=== PATIENT | male | born 1965 | race Caucasian/White ===

== ENCOUNTER 2017-09-14 11:54 | Emergency (ER) | payer SELFPAY ==
--- NOTE | 2017-09-14 13:18 | RAD REPORT ---
EXAM DESCRIPTION: RAD - Knee Left 3 View - 09/14/2017 1:00 pm CLINICAL HISTORY: Left knee pain FINDINGS: No fracture or dislocation is seen. A small joint effusion may be present Mild narrowing involves the medial compartment
--- NOTE | 2017-09-14 13:38 | ER ---
Nurse's Notes [facility] Name: Michael Loya Age: 52 yrs Sex: Male : 1965 Arrival Date: 09/14/2017 Time: 11:57 Bed 10 Private MD: None, None Diagnosis: Left Knee pain;Left Knee pain;Left knee swelling;left knee effuion Presentation: 09/14 12:15 Presenting complaint: Patient states: Left knee pain since Tuesday. Denies OTC medications. Transition of care: patient was not received from another setting of care. Onset of symptoms was September 09, 2017. Initial Sepsis Screen: Does the patient meet any 2 criteria? No. Patient's initial sepsis screen is negative. Does the patient have a suspected source of infection? No. Patient's initial sepsis screen is negative. Care prior to arrival: None. 12:15 Method Of Arrival: Wheelchair aj 12:15 Acuity: LUISA 4 aj Triage Assessment: 12:16 General: Appears in no apparent distress. comfortable, Behavior is calm, cooperative, aj appropriate for age. Pain: Complains of pain in left knee. Neuro: Level of Consciousness is awake, alert, obeys commands, Oriented to person, place, time, situation, Appropriate for age. Respiratory: Airway is patent Respiratory effort is even, unlabored, Respiratory pattern is regular, symmetrical. Derm: Skin is intact, is healthy with good turgor, Skin is pink, warm \T\ dry. normal. Musculoskeletal: Circulation, motion, and sensation intact. Range of motion: intact in all extremities, Swelling absent. Historical: - Allergies: 12:16 No Known Allergies; aj - Home Meds: 12:16 None [Active]; aj - PMHx: 12:16 Hepatitis; - PSHx: 12:16 Cholecystectomy; FOOT SURGERY; aj - Immunization history:: Adult Immunizations up to date. - Social history:: Smoking status: Patient uses tobacco products, smokes one pack cigarettes per day. - Family history:: not pertinent. - Hospitalizations: : No recent hospitalization is reported. Screenin:15 Abuse screen: Denies threats or abuse. Denies injuries from another. Nutritional iw screening: No deficits noted. Tuberculosis screening: No symptoms or risk factors identified. Fall Risk None identified. Assessment: 13:15 General: Appears in no apparent distress. comfortable, Behavior is calm, cooperative. iw Pain: Complains of pain in left knee. Neuro: Level of Consciousness is awake, alert, obeys commands, Oriented to person, place, time, Moves all extremities. Cardiovascular: Patient's skin is warm and dry. Respiratory: Airway is patent. GI: No signs and/or symptoms were reported involving the gastrointestinal system. Derm: Skin is pink, warm \T\ dry. normal. Musculoskeletal: Range of motion: limited in left knee. Vital Signs: 12:16 BP 130 / 86; Pulse 88; Resp 18; Temp 99.2; Pulse Ox 99% on R/A; Weight 79.38 kg; Height aj 5 ft. 8 in. (172.72 cm); Pain 7/10; 12:16 Body Mass Index 26.61 (79.38 kg, 172.72 cm) aj ED Course: 11:57 Patient arrived in ED. mr 11:57 None, None is Private Physician. mr 12:16 Triage completed. aj 12:16 Arm band placed on right wrist. Patient placed in waiting room, Patient notified of wait time. X-ray ordered. 12:56 Jackie Vaz, DIANA is Primary Nurse. iw 12:58 X-ray completed. Patient tolerated procedure well. Patient moved to radiology via jb2 wheelchair. Patient moved back from radiology. 13:00 XRAY Knee LEFT 3 view In Process Unspecified. EDMS 13:01 Joel Gutierrez MD is Attending Physician. wa 13:30 Patient has correct armband on for positive identification. iw 13:36 Nithin Long MD is Referral Physician. wa 14:15 No provider procedures requiring assistance completed. Patient did not have IV access iw during this emergency room visit. Administered Medications: 14:11 Drug: Motrin 600 mg Route: PO; iw 14:11 Drug: predniSONE 60 mg Route: PO; iw Outcome: 13:37 Discharge ordered by . wa 14:16 Discharged to home via wheelchair, with family. iw 14:16 Condition: good 14:16 Discharge instructions given to patient, family, Instructed on discharge instructions, follow up and referral plans. medication usage, Demonstrated understanding of instructions, follow-up care, medications, Prescriptions given X 2. 14:16 Patient left the ED. iw Signatures: Dispatcher [employer] EDCarol Ann Boogie RN RN aj Rivera, Maria mr Buechter, Jesse jb2 Jackie Vaz, DIANA RN Joel Ybarra MD MD wa
--- NOTE | 2017-09-14 13:38 | EDPHYS ---
Physician Documentation [facility] Name: Michael Loya Age: 52 yrs Sex: Male : 1965 Arrival Date: 09/14/2017 Time: 11:57 Bed 10 Private MD: None, None ED Physician Joel Gutierrez HPI: 09/14 13:29 This 52 yrs old Male presents to ER via Wheelchair with complaints of Knee wa Pain. 13:29 The patient presents with pain, that is acute, tenderness. The complaints affect the wa left knee. Context: denies known injury. c/o pain with ambulation and touch x 5 days. Onset: The symptoms/episode began/occurred 5 day(s) ago. Modifying factors: The symptoms are alleviated by nothing. the symptoms are aggravated by nothing. Associated signs and symptoms: Pertinent positives: swelling, warmth, Pertinent negatives calf tenderness, fever, nausea, numbness, rash, tingling, vomiting. Treatment prior to arrival includes: no previous treatment. Severity of symptoms: At their worst the symptoms were moderate, in the emergency department the symptoms are unchanged. The patient has not experienced similar symptoms in the past. The patient has not recently seen a physician. Historical: - Allergies: 12:16 No Known Allergies; aj - Home Meds: 12:16 None [Active]; aj - PMHx: 12:16 Hepatitis; aj - PSHx: 12:16 Cholecystectomy; FOOT SURGERY; aj - Immunization history:: Adult Immunizations up to date. - Social history:: Smoking status: Patient uses tobacco products, smokes one pack cigarettes per day. - Family history:: not pertinent. - Hospitalizations: : No recent hospitalization is reported. ROS: 13:31 Constitutional: Negative for fever, chills, and weight loss, Eyes: Negative for injury, wa pain, redness, and discharge, ENT: Negative for injury, pain, and discharge, Neck: Negative for injury, pain, and swelling, Cardiovascular: Negative for chest pain, palpitations, and edema, Respiratory: Negative for shortness of breath, cough, wheezing, and pleuritic chest pain, Abdomen/GI: Negative for abdominal pain, nausea, vomiting, diarrhea, and constipation, Back: Negative for injury and pain, : Negative for injury, bleeding, discharge, and swelling, Skin: Negative for injury, rash, and discoloration, Neuro: Negative for headache, weakness, numbness, tingling, and seizure. 13:31 MS/extremity: Positive for pain, swelling, tenderness, no deformity of L knee. mild diffuse swelling with tenderness. normothermic to palpation. 13:31 All other systems are negative. Vital Signs: 12:16 BP 130 / 86; Pulse 88; Resp 18; Temp 99.2; Pulse Ox 99% on R/A; Weight 79.38 kg; Height aj 5 ft. 8 in. (172.72 cm); Pain 7/10; 12:16 Body Mass Index 26.61 (79.38 kg, 172.72 cm) MDM: 13:01 Patient medically screened. ok 13:32 Differential diagnosis: arthritis? effusion? pain control. check xrays. ok 13:34 Data reviewed: vital signs, nurses notes, radiologic studies. Test interpretation: by ok ED physician or midlevel provider: L knee xray: mild narrowing to medial compartment. small joint effusion. Response to treatment: the patient's symptoms have mildly improved after treatment. 13:35 Special discussion: pain meds given. will d/c with ortho f/u. ok 09/14 12:18 Order name: XRAY Knee LEFT 3 view; Complete Time: 13:21 09/14 13:25 Order name: Charlie Wrap: L knee; Complete Time: 14:13 ok Administered Medications: 14:11 Drug: Motrin 600 mg Route: PO; 14:11 Drug: predniSONE 60 mg Route: PO; Disposition: 09/14/17 13:37 Discharged to Home. Impression: Left Knee pain, Left Knee pain, Left knee swelling, left knee effuion. - Condition is Stable. - Discharge Instructions: Knee Effusion, Knee Pain. - Prescriptions for Ibuprofen 600 mg Oral Tablet - take 1 tablet by ORAL route every 6 hours As needed take with food; 30 tablet. Prednisone 20 mg Oral Tablet - take 2 tablet by ORAL route once daily for 5 days; 10 tablet. - Medication Reconciliation Form, Thank You Letter, Antibiotic Education, Prescription Opioid Use form. - Follow up: Nithin Long MD; When: 2 - 3 days; Reason: Further diagnostic work-up. - Problem is new. - Symptoms have improved. - Notes: take medicine as prescribed as discussed. follow up with the orthopedist for further evaluation Signatures: Dispatcher [employer] Carol Ann Metzger, RN Jackie Jacques RN RN iw Appiah, William, MD MD wa Corrections: (The following items were deleted from the chart) 14:16 13:37 09/14/2017 13:37 Discharged to Home. Impression: Left Knee pain; Left Knee pain; iw Left knee swelling; left knee effuion. Condition is Stable. Forms are Medication Reconciliation Form, Thank You Letter, Antibiotic Education, Prescription Opioid Use. Follow up: Nithin Long; When: 2 - 3 days; Reason: Further diagnostic work-up. Problem is new. Symptoms have improved. wa
[2017-09-14] MEDS ORDERED: predniSONE 20 MG TAB ONE (14:07)
[2017-09-14] MEDS ORDERED: IBUPROFEN 200 MG TAB PO ONE (14:07)
== END 2017-09-14 14:16 | disposition home or self-care (01) ==
LOC: ER 11:54
DX: M25.562 Pain in left knee (principal); M25.462 Effusion, left knee
CPT/HCPCS: 99283; J7512

== ENCOUNTER 2018-04-11 01:22 | Emergency (ER) | payer SELFPAY ==
--- NOTE | 2018-04-11 02:17 | ER ---
Nurse's Notes [facility] Name: Michael Loya Age: 52 yrs Sex: Male : 1965 Arrival Date: 04/11/2018 Time: :27 Bed Waiting Private MD: Diagnosis: Presentation: 04/11 01:41 Note pt called from lob but was not available registration states pt went out to make bb a phone call. 02:15 Note pt called from lob no answer. bb ED Course: 01:27 Patient arrived in ED. es 01:33 Marito Shin MD is Attending Physician. fay 01:33 Luis Eduardo De Paz RN is Primary Nurse. jmelo 01:55 Patient's name was called from ER lob. No response. aa1 Administered Medications: No medications were administered Outcome: 02:16 Patient left the ED. bb Signatures: Minna Rojas RN RN aa1 Marylin Cheng Brenda, RN RN bb Marito Shin MD MD gs Davies, Jonathon, RN RN jd3
== END 2018-04-11 02:16 | disposition left against medical advice (07) ==
LOC: ER 01:22
DX: Z53.21 Procedure and treatment not carried out due to patient leaving prior to being seen by health care provider (principal)

== ENCOUNTER 2020-07-23 03:08 | Emergency (ER) | payer SELFPAY ==
--- OUTSIDE RECORDS SUMMARY | 2020-07-23 03:11 | XMS REPORT | Continuity of Care Document ---
:1965 Author Organization [facility] t Address [address] [place] [id number] Care Team Providers Name Role Phone Unavailable Unavailable Unavailable Problems This patient has no known problems. Allergies, Adverse Reactions, Alerts This patient has no known allergies or adverse reactions. Medications This patient has no known medications. Procedures This patient has no known procedures. Results This patient has no known results.
[2020-07-23 05:15] LABS: Barbiturates NEGATIVE (NEGATIVE); Benzodiazepines NEGATIVE (NEGATIVE); Cocaine NEGATIVE (NEGATIVE); METHAMPHETAM POSITIVE (NEGATIVE); Methadone NEGATIVE (NEGATIVE); Opiates NEGATIVE (NEGATIVE); Phencyclidine NEGATIVE (NEGATIVE); THC Cannibis POSITIVE (NEGATIVE)
[2020-07-23 05:37] LABS: Urine Blood NEGATIVE (NEG); Urine Glucose NEGATIVE (NEG); Urine Protein NEGATIVE (NEG); Urine Specific Gravity 1.025 (1.005-1.030)
--- NOTE | 2020-07-23 05:47 | ER ---
Nurse's Notes [facility] Name: Michael Loya Age: 54 yrs Sex: Male : 1965 Arrival Date: 07/23/2020 Time: 03:12 Bed 23 Private MD: Diagnosis: Fall-Mechanical;Lower Back Contusion;Spinal stenosis, lumbar region;Methamphetamine Abuse;Cannabinoid Abuse Presentation: 07/23 03:26 Chief complaint: Patient states: he accidently fell through a house window 2 days ago bb landing on his back 2 days ago denies LOC but is c/o right buttock pain which is a constant, non-radiating throbbing pain 01/23 and now he has urinary frequency "it doesn't feel right". Coronavirus screen: At this time, the client does not indicate any symptoms associated with coronavirus-19. Ebola Screen: No symptoms or risks identified at this time. Initial Sepsis Screen: Does the patient meet any 2 criteria? No. Patient's initial sepsis screen is negative. Does the patient have a suspected source of infection? No. Patient's initial sepsis screen is negative. Risk Assessment: Do you want to hurt yourself or someone else? Patient reports no desire to harm self or others. Onset of symptoms was July 20, 2020. 03:26 Method Of Arrival: Ambulatory bb 03:26 Acuity: LUISA 3 bb Triage Assessment: :29 General: Appears in no apparent distress. uncomfortable, Behavior is calm, cooperative. bb Pain: Complains of pain in buttocks Pain currently is 9 out of 10 on a pain scale. Neuro: Level of Consciousness is awake, alert, obeys commands, Oriented to person, place, time, situation. Cardiovascular: No deficits noted. Respiratory: Respiratory effort is even, unlabored, Respiratory pattern is regular. : Reports urinary frequency. Musculoskeletal: Circulation, motion, and sensation intact. Historical: - Allergies: 03:29 No Known Allergies; bb - Home Meds: : None [Active]; bb - PMHx: 03: Hepatitis; bb - PSHx: 03:29 Cholecystectomy; toe surgery; bb - Immunization history:: Adult Immunizations up to date. - Social history:: Smoking status: Patient reports the use of cigarette tobacco products, smokes one-half pack cigarettes per day. Screenin:02 Abuse screen: Denies threats or abuse. Nutritional screening: No deficits noted. bb Tuberculosis screening: No symptoms or risk factors identified. Fall Risk Fall in past 12 months (25 points). Secondary diagnosis (15 points) impaired mobility, Ambulatory Aid- None/Bed Rest/Nurse Assist (0 pts). Gait- Normal/Bed Rest/Wheelchair (0 pts) Mental Status- Oriented to own ability (0 pts). Total Suarez Fall Scale indicates Low Risk Score (25-44 pts). Fall prevention measures have been instituted. Side Rails Up X 2 As available Patient and Family Educated on Fall Prevention Program and strategies. Assessment: 04:02 Reassessment: No changes from previously documented assessment. see triage assessment. bb 06:01 Reassessment: Patient and/or family updated on plan of care and expected duration. Pain bb level reassessed. Patient is alert, oriented x 3, equal unlabored respirations, skin warm/dry/pink. pt states pain is now 2/10. Pt verbalized understanding of and agrees to plan of care discharge instructions given pt ambulated with steady gait to exit Patient states feeling better. Vital Signs: 03:26 BP 152 / 100; Pulse 74; Resp 16 S; Temp 97.9(O); Pulse Ox 99% on R/A; Weight 72.57 kg bb (R); Height 5 ft. 7 in. (170.18 cm) (R); Pain 9/10; 04:55 BP 150 / 93; Pulse 64; Resp 16; Pulse Ox 96% on R/A; mw2 06:02 BP 150 / 90; Pulse 68; Resp 16 S; Temp 97.7(O); Pulse Ox 97% on R/A; Pain 2/10; bb 03:26 Body Mass Index 25.06 (72.57 kg, 170.18 cm) ED Course: 03:12 Patient arrived in ED. am4 03:29 Triage completed. bb 03:29 Arm band placed on Patient placed in waiting room, Patient notified of wait time. bb 03:58 Gregorio Montejo MD is Attending Physician. [facility] 04:02 Patient has correct armband on for positive identification. Call light in reach. Side bb rails up X 1. 04:58 CT Lumbar Spine Wo Con In Process Unspecified. EDMS 05:43 Vinod Cr MD is Referral Physician. [facility] 06:02 No provider procedures requiring assistance completed. Patient did not have IV access bb during this emergency room visit. Administered Medications: 05:40 Drug: TORadol 60 mg Route: IM; Site: right gluteus; bb 06:01 Follow up: Response: No adverse reaction; Pain is decreased shante Outcome: 05:46 Discharge ordered by . [facility] 06:02 Discharged to home ambulatory. shante 06:02 Condition: stable 06:02 Discharge instructions given to patient, Instructed on discharge instructions, follow up and referral plans. Demonstrated understanding of instructions, follow-up care. 06:03 Patient left the ED. bb Signatures: Dispatcher [employer] EDIrma Orozco RN RN bb Akhil Monge mw2 Gregorio Montejo MD MD [facility] Melia Quintanilla 4
--- NOTE | 2020-07-23 05:47 | EDPHYS ---
Physician Documentation [facility] Name: Michael Loya Age: 54 yrs Sex: Male : 1965 Arrival Date: 07/23/2020 Time: 03:12 Bed 23 Private MD: ED Physician Gregorio Montejo HPI: 07/23 05:06 This 54 yrs old Male presents to ER via Ambulatory with complaints of Fall mh7 Injury. 05:07 Details of fall: The patient fell from a height, from a ladder, approximately 2 feet, mh7 and struck a glass surface. Onset: The symptoms/episode began/occurred 3 day(s) ago. Associated injuries: The patient sustained injury to the low back, pain, pain with movement, tenderness. Severity of symptoms: At their worst the symptoms were moderate, 2 day(s) ago, in the emergency department the symptoms are unchanged. States that as he was coming down from a ladder when was approximately 2 feet high he fell into a 1 st floor window injuring his lower back. He denies any LOC or other injuries.. Historical: - Allergies: 03:29 No Known Allergies; bb - Home Meds: 03:29 None [Active]; bb - PMHx: 03:29 Hepatitis; bb - PSHx: 03:29 Cholecystectomy; toe surgery; bb - Immunization history:: Adult Immunizations up to date. - Social history:: Smoking status: Patient reports the use of cigarette tobacco products, smokes one-half pack cigarettes per day. ROS: 05:07 Constitutional: Negative for fever, chills, and weight loss, Eyes: Negative for injury, mh7 pain, redness, and discharge, ENT: Negative for injury, pain, and discharge, Neck: Negative for injury, pain, and swelling, Cardiovascular: Negative for chest pain, palpitations, and edema, Respiratory: Negative for shortness of breath, cough, wheezing, and pleuritic chest pain, Abdomen/GI: Negative for abdominal pain, nausea, vomiting, diarrhea, and constipation. 05:07 MS/Extremity: Negative for injury and deformity, Skin: Negative for injury, rash, and discoloration, Neuro: Negative for headache, weakness, numbness, tingling, and seizure, Psych: Negative for depression, anxiety, suicide ideation, homicidal ideation, and hallucinations, Allergy/Immunology: Negative for hives, rash, and allergies, Endocrine: Negative for neck swelling, polydipsia, polyuria, polyphagia, and marked weight changes, Hematologic/Lymphatic: Negative for swollen nodes, abnormal bleeding, and unusual bruising. 05:07 Back: Negative for 05:07 : Positive for urinary frequency, for 2-3 weeks. Exam: 05:07 Constitutional: This is a well developed, well nourished patient who is awake, alert, mh7 and in no acute distress. Head/Face: Normocephalic, atraumatic. Eyes: Pupils equal round and reactive to light, extra-ocular motions intact. Lids and lashes normal. Conjunctiva and sclera are non-icteric and not injected. Cornea within normal limits. Periorbital areas with no swelling, redness, or edema. Neck: Trachea midline, no thyromegaly or masses palpated, and no cervical lymphadenopathy. Supple, full range of motion without nuchal rigidity, or vertebral point tenderness. No Meningismus. Chest/axilla: Normal chest wall appearance and motion. Nontender with no deformity. No lesions are appreciated. Cardiovascular: Regular rate and rhythm with a normal S1 and S2. No gallops, murmurs, or rubs. Normal PMI, no JVD. No pulse deficits. Respiratory: Lungs have equal breath sounds bilaterally, clear to auscultation and percussion. No rales, rhonchi or wheezes noted. No increased work of breathing, no retractions or nasal flaring. Abdomen/GI: Soft, non-tender, with normal bowel sounds. No distension or tympany. No guarding or rebound. No evidence of tenderness throughout. Skin: Warm, dry with normal turgor. Normal color with no rashes, no lesions, and no evidence of cellulitis. MS/ Extremity: Pulses equal, no cyanosis. Neurovascular intact. Full, normal range of motion. Neuro: Awake and alert, GCS 15, oriented to person, place, time, and situation. Cranial nerves II-XII grossly intact. Motor strength 5/5 in all extremities. Sensory grossly intact. Cerebellar exam normal. Normal gait. Psych: Awake, alert, with orientation to person, place and time. Behavior, mood, and affect are within normal limits. Vital Signs: 03:26 BP 152 / 100; Pulse 74; Resp 16 S; Temp 97.9(O); Pulse Ox 99% on R/A; Weight 72.57 kg bb (R); Height 5 ft. 7 in. (170.18 cm) (R); Pain 9/10; 04:55 BP 150 / 93; Pulse 64; Resp 16; Pulse Ox 96% on R/A; mw2 06:02 BP 150 / 90; Pulse 68; Resp 16 S; Temp 97.7(O); Pulse Ox 97% on R/A; Pain 2/10; bb 03:26 Body Mass Index 25.06 (72.57 kg, 170.18 cm) bb MDM: 05:42 Differential diagnosis: abrasion, contusion, fracture. Data reviewed: vital signs, [facility] nurses notes, lab test result(s), urinalysis, urine drug screen, radiologic studies, CT scan. Data interpreted: Pulse oximetry: on room air is 96 %. Interpretation: normal. Counseling: I had a detailed discussion with the patient and/or guardian regarding: the historical points, exam findings, and any diagnostic results supporting the discharge/admit diagnosis, the presence of at least one elevated blood pressure reading (>120/80) during this emergency department visit, lab results, radiology results, the need for outpatient follow up, to return to the emergency department if symptoms worsen or persist or if there are any questions or concerns that arise at home. 05:46 Patient medically screened. [facility] 07/23 04:23 Order name: UDS; Complete Time: 05:17 [facility] 07/23 04:42 Order name: Urine Dipstick--Ancillary (enter results) [facility] 07/23 04:23 Order name: CT Lumbar Spine Wo Con [facility] 07/23 04:23 Order name: Urine Dipstick-Ancillary (obtain specimen); Complete Time: 04:41 [facility] 07/23 04:43 Order name: Urine Dipstick-Ancillary; Complete Time: 05:39 EDMS Administered Medications: 05:40 Drug: TORadol 60 mg Route: IM; Site: right gluteus; bb 06:01 Follow up: Response: No adverse reaction; Pain is decreased bb Disposition: 07/23/20 05:46 Discharged to Home. Impression: Fall-Mechanical, Lower Back Contusion, Spinal stenosis, lumbar region, Methamphetamine Abuse, Cannabinoid Abuse. - Condition is Stable. - Discharge Instructions: Cannabis Use Disorder, Back Injury Prevention, Uxoq-[id number]-Clev, Contusion, Kbpy-xh-[id number], Back Pain, Adult, Sxfe-jy-[id number], Stimulant Use Disorder-Methamphetamines. - Medication Reconciliation Form, Thank You Letter, Antibiotic Education, Prescription Opioid Use form. - Follow up: Private Physician; When: 1 - 2 days; Reason: Worsening of condition, Recheck today's complaints, Continuance of care, Re-evaluation by your physician. Follow up: Vinod Cr MD; When: 1 - 2 days; Reason: Worsening of condition, Recheck today's complaints. - Problem is new. - Symptoms have improved. Signatures: Dispatcher [employer] EDMS Irma Espinoza RN RN Gregorio Hatfield MD MD mh7 Corrections: (The following items were deleted from the chart) 05:50 05:46 07/23/2020 05:46 Discharged to Home. Impression: Fall-Mechanical; Lower Back mh7 Contusion; Spinal stenosis, lumbar region. Condition is Stable. Forms are Medication Reconciliation Form, Thank You Letter, Antibiotic Education, Prescription Opioid Use. Follow up: Private Physician; When: 1 - 2 days; Reason: Worsening of condition, Recheck today's complaints, Continuance of care, Re-evaluation by your physician. Follow up: Vinod Cr; When: 1 - 2 days; Reason: Worsening of condition, Recheck today's complaints. Problem is new. Symptoms have improved. mh7 06:03 05:50 07/23/2020 05:46 Discharged to Home. Impression: Fall-Mechanical; Lower Back bb Contusion; Spinal stenosis, lumbar region; Methamphetamine Abuse; Cannabinoid Abuse. Condition is Stable. Discharge Instructions: Back Injury Prevention, Yodz-fp-[id number], Contusion, Hkte-lm-Movd, Back Pain, Adult, Lofc-vm-Wiii, Cannabis Use Disorder, Stimulant Use Disorder-Methamphetamines. Forms are Medication Reconciliation Form, Thank You Letter, Antibiotic Education, Prescription Opioid Use. Follow up: Private Physician; When: 1 - 2 days; Reason: Worsening of condition, Recheck today's complaints, Continuance of care, Re-evaluation by your physician. Follow up: Vinod Cr; When: 1 - 2 days; Reason: Worsening of condition, Recheck today's complaints. Problem is new. Symptoms have improved. 7
[2020-07-23] MEDS ORDERED: KETOROLAC 30 MG/ML INJ ONE (05:55)
--- NOTE | 2020-07-23 10:23 | RAD REPORT ---
EXAM DESCRIPTION: CT Lumbar Spine COMPARISON: None. CLINICAL HISTORY: [facility] MAIN trauma TECHNIQUE: Axial CT images were obtained through the entire lumbar spine without contrast. Sagitta l and coronal reconstructions are provided. Automated exposure control was utilized on this examinati on as a dose lowering technique. FINDINGS: Vertebrae: Vertebral statures and alignment are normal. No acute vertebral fracture, dis location or destructive osseous process is present. Spinal canal, foramina, and facet joints: Greatest spinal canal stenosis is moderate at L5-S1 due to disc bulge and facet hypertrophy. Greatest neural foraminal stenosis is moderate to severe at right L5 due to facet hypertrophy with fragmented osteophyte. Paraspinous soft-tissues: Normal. Other Findings: Moderate calcified atherosclerosis. IMPRESSION: 1. No acute vertebral fracture or subluxation. 2. Moderate spinal canal stenosis at L5-S1. 3. Moderate to severe right L5 neural foraminal stenosis due to facet hypertrophy with fragmented ost eophyte. 4. Moderate atherosclerosis. Electronically signed by: Nhan Boone MD 07/23/2020 5:09 AM [employer] Due to temporary technical issues with the PACS/Fluency reporting system, reports are being signed by the in house radiologist without review as a courtesy to ensure prompt reporting. The interpreting r adiologist is fully responsible for the content of the report.
[2020-07-23 17:59] VITALS: BP 150/90; TEMP 97.7; O2SAT 97
== END 2020-07-23 06:03 | disposition home or self-care (01) ==
LOC: ER 03:08
DX: S30.0XXA Contusion of lower back and pelvis, initial encounter (principal); M48.061 Spinal stenosis, lumbar region without neurogenic claudication; F15.10 Other stimulant abuse, uncomplicated; F12.10 Cannabis abuse, uncomplicated; F17.210 Nicotine dependence, cigarettes, uncomplicated; W11.XXXA Fall on and from ladder, initial encounter
CPT/HCPCS: 72131; 80307; 81003; 96372; 99283

== ENCOUNTER 2020-10-03 23:21 | Emergency (ER) | payer SELFPAY ==
--- OUTSIDE RECORDS SUMMARY | 2020-10-03 23:23 | XMS REPORT | Continuity of Care Document ---
:1965 Author Organization [facility] t Address [address] [place] [id number] Care Team Providers Name Role Phone Unavailable Unavailable Unavailable Problems This patient has no known problems. Allergies, Adverse Reactions, Alerts This patient has no known allergies or adverse reactions. Medications This patient has no known medications. Procedures This patient has no known procedures. Results This patient has no known results.
--- NOTE | 2020-10-04 00:20 | ER ---
Nurse's Notes [facility] Name: Michael Loya Age: 55 yrs Sex: Male : 1965 Arrival Date: 10/03/2020 Time: 23:25 Bed Waiting Private MD: Diagnosis: Presentation: 10/03 23:38 Chief complaint: Patient states: he fell about a month ago and was seen in the ED since bb then he has been having right shoulder pain which is now radiating down his arm into his wrist. Coronavirus screen: At this time, the client does not indicate any symptoms associated with coronavirus-19. Ebola Screen: No symptoms or risks identified at this time. Initial Sepsis Screen: Does the patient meet any 2 criteria? No. Patient's initial sepsis screen is negative. Does the patient have a suspected source of infection? No. Patient's initial sepsis screen is negative. Risk Assessment: Do you want to hurt yourself or someone else? Patient reports no desire to harm self or others. Onset of symptoms was August 2020. 23:38 Method Of Arrival: Ambulatory 23:38 Acuity: LUISA 4 10/04 00:19 Note registration states pt left the ED. bb Triage Assessment: 10/03 23:40 General: Appears uncomfortable, Behavior is cooperative, anxious. Pain: Complains of bb pain in right arm Pain currently is 8.5 out of 10 on a pain scale. Neuro: Level of Consciousness is awake, alert, obeys commands, Oriented to person, place, time, situation. Cardiovascular: Capillary refill < 3 seconds Patient's skin is warm and dry. Respiratory: Respiratory effort is even, unlabored, Respiratory pattern is regular. GI: No signs and/or symptoms were reported involving the gastrointestinal system. Derm: Skin is pink, warm \T\ dry. Musculoskeletal: Circulation, motion, and sensation intact. Capillary refill < 3 seconds, Reports pain in right arm. Historical: - Allergies: 23:40 No Known Allergies; bb - Home Meds: 23:40 None [Active]; bb - PMHx: 23:40 Hepatitis C; bb - PSHx: 23:40 Cholecystectomy; toe surgery; bb - Immunization history:: Adult Immunizations up to date. - Social history:: Smoking status: Patient reports the use of cigarette tobacco products, smokes one-half pack cigarettes per day, Patient/guardian denies using alcohol. Vital Signs: 23:38 BP 126 / 83; Pulse 83; Resp 16 S; Temp 99(TE); Pulse Ox 99% on R/A; Weight 72.57 kg bb (R); Height 5 ft. 8 in. (172.72 cm) (R); Pain 8/10; 23:38 Body Mass Index 24.33 (72.57 kg, 172.72 cm) bb ED Course: 23:25 Patient arrived in ED. bp1 23:40 Triage completed. bb 23:40 Arm band placed on Patient placed in waiting room, Patient notified of wait time. bb Administered Medications: No medications were administered Outcome: 10/04 00:19 Patient left the ED. bb Signatures: Irma Espinoza RN RN bb Gavi Moore bp1
[2020-10-04 00:31] VITALS: BP 126/83; TEMP 99; O2SAT 99
== END 2020-10-04 00:19 | disposition left against medical advice (07) ==
LOC: ER 23:21
DX: M25.511 Pain in right shoulder (principal); F17.210 Nicotine dependence, cigarettes, uncomplicated; Z53.21 Procedure and treatment not carried out due to patient leaving prior to being seen by health care provider
CPT/HCPCS: 99281

== ENCOUNTER 2020-10-09 15:00 | Emergency (ER) | payer SELFPAY ==
--- OUTSIDE RECORDS SUMMARY | 2020-10-09 15:03 | XMS REPORT | Continuity of Care Document ---
:1965 Author Organization [facility] t Address [address] [place] [id number] Care Team Providers Name Role Phone Unavailable Unavailable Unavailable Problems This patient has no known problems. Allergies, Adverse Reactions, Alerts This patient has no known allergies or adverse reactions. Medications This patient has no known medications. Procedures This patient has no known procedures. Results This patient has no known results.
[2020-10-09] MEDS ORDERED: FLUORESCEIN SODIUM 1 MG/WRAP ONE (15:27)
[2020-10-09] MEDS ORDERED: TETRACAINE HCL 0.5% 4ML OPTH ONE (15:27)
--- NOTE | 2020-10-09 15:31 | EDPHYS ---
Physician Documentation [facility] Name: Michael Loya Age: 55 yrs Sex: Male : 1965 Arrival Date: 10/09/2020 Time: 15:02 Bed 4 Private MD: ED Physician Ryley Allison HPI: 10/09 15:22 This 55 yrs old Male presents to ER via Ambulatory with complaints of Foreign kdr Body In Eye. 15:22 The patient is experiencing blurred vision, burning, pain, redness, tearing, The kdr patient sustained an abrasion, contusion, a scratch, to the left eye, caused by metal fragment, #10 metal wire fell from above him striking him in . Onset: The symptoms/episode began/occurred suddenly, just prior to arrival. Duration: the symptoms are continuous. Aggravated by blinking, closing eye. Associated signs and symptoms: Pertinent positives: None. Patient does not utilize any form of vision correction. Severity of symptoms: At their worst the symptoms were mild moderate just prior to arrival. The patient has not experienced similar symptoms in the past. The patient has not recently seen a physician. Historical: - Allergies: 15:05 No Known Allergies; sv - PMHx: 15:03 Hepatitis C; sv - PSHx: 15:03 Cholecystectomy; toe surgery; sv - Immunization history:: Client reports having NOT received the Covid vaccine. Last tetanus immunization: < 5 years ago Flu vaccine is not up to date. - Social history:: Smoking status: Patient reports the use of cigarette tobacco products, smokes one-half pack cigarettes per day. ROS: 15:22 Constitutional: Negative for fever, chills, and weight loss, ENT: Negative for injury, kdr pain, and discharge, Neck: Negative for injury, pain, and swelling, Cardiovascular: Negative for chest pain, palpitations, and edema, Respiratory: Negative for shortness of breath, cough, wheezing, and pleuritic chest pain, Abdomen/GI: Negative for abdominal pain, nausea, vomiting, diarrhea, and constipation, Back: Negative for injury and pain, : Negative for injury, bleeding, discharge, and swelling, MS/Extremity: Negative for injury and deformity, Skin: Negative for injury, rash, and discoloration, Neuro: Negative for headache, weakness, numbness, tingling, and seizure activity. Psych: Negative for depression, anxiety, suicide ideation, homicidal ideation, and hallucinations, Allergy/Immunology: Negative for hives, rash, and allergies, Endocrine: Negative for neck swelling, polydipsia, polyuria, polyphagia, and marked weight changes, Hematologic/Lymphatic: Negative for swollen nodes, abnormal bleeding, and unusual bruising. 15:22 Eyes: Positive for blurry vision, pain, redness, of the outer aspect of conjuctiva of left eye. Exam: 15:22 Constitutional: This is a well developed, well nourished patient who is awake, alert, kdr and in no acute distress. Head/Face: Normocephalic, atraumatic. Neck: Trachea midline, no thyromegaly or masses palpated, and no cervical lymphadenopathy. Supple, full range of motion without nuchal rigidity, or vertebral point tenderness. No Meningismus. Chest/axilla: Normal chest wall appearance and motion. Nontender with no deformity. No lesions are appreciated. 15:22 Eyes: Periorbital structures: appear normal, Pupils: equal, round, and reactive to light and accomodation, constricted, bilaterally, right pupil is approximately 2 mm(s), left pupil is approximately 2 mm(s), Extraocular movements: intact throughout, Conjunctiva: injected, subconjunctival hemorrhage(s), seen in the left eye, at 5 o'clock, Corneas: are normal, no evidence of abrasion, no foreign body, Sclera: abrasion, of the lateral aspect of conjunctiva of left eye, Anterior chamber: normal, Lids and lashes: appear normal. Vital Signs: 15:02 BP 149 / 91; Pulse 88; Resp 16 S; Temp 97.8(TE); Pulse Ox 97% on R/A; Weight 74.84 kg ca1 (R); Height 5 ft. 8 in. (172.72 cm) (R); 15:02 Body Mass Index 25.09 (74.84 kg, 172.72 cm) ca1 MDM: 15:21 Data reviewed: vital signs, nurses notes. Counseling: I had a detailed discussion with kdr the patient and/or guardian regarding: the historical points, exam findings, and any diagnostic results supporting the discharge/admit diagnosis, lab results, radiology results, the need for outpatient follow up. ED course: PMPAware - No history. 15:22 Differential diagnosis: Corneal abrasion of left eye. Corneal ulcer of Foreign body in kdr Acute iritis of Ultraviolet keratitis in left eye. Response to treatment: the patient's symptoms have markedly improved after treatment, patient is well hydrated. 15:31 Patient medically screened. [facility] 10/09 15:13 Order name: Fluoresene Opth strip; Complete Time: 15:13 em Administered Medications: 15:10 Drug: Tetracaine Drops 0.5 % 1 drops Route: Ophthalmic; Site: left eye; em 15:20 Follow up: Response: No adverse reaction em 15:24 Drug: [place] (HYDROcodone-acetaminophen) (7.5 mg-325 mg) 1 tabs Route: PO; em 15:44 Follow up: Response: No adverse reaction em 15:42 Drug: Tobramycin Ointment (0.3 %) 0.5 inches Route: Ophthalmic; Site: left eye; em 15:44 Follow up: Response: Medication administered at discharge. em 15:43 Not Given (Other Intervention Used): Gentamicin Ointment 0.3 % 0.5 inches Ophthalmic em once; Left Eye Disposition: 10/09/20 15:31 Discharged to Home. Impression: Injury of conjunctiva and corneal abrasion without foreign body, left eye. - Condition is Stable. - Prescriptions for Tylenol- Codeine #3 300-30 mg Oral Tablet - take 2 tablets by ORAL route every 4-6 hours As needed; 12 tablet. TobraDex 0.3- 0.1 % Ophthalmic ointment - apply 0.5 inch by OPHTHALMIC route 3 times per day for 3 days; 1 tube. - Medication Reconciliation Form, Thank You Letter, Antibiotic Education, Prescription Opioid Use form. - Follow up: Private Physician; When: 2 - 3 days; Reason: If symptoms return, Further diagnostic work-up, Recheck today's complaints, Continuance of care, Re-evaluation by your physician. - Problem is new. - Symptoms have improved. Signatures: Nettie Chisholm RN RN Ryley Allison MD MD [facility] Brian Suárez RN RN em Acob, DIANA Pressley RN ca1 Corrections: (The following items were deleted from the chart) 15:46 15:31 10/09/2020 15:31 Discharged to Home. Impression: Injury of conjunctiva and em corneal abrasion without foreign body, left eye. Condition is Stable. Forms are Medication Reconciliation Form, Thank You Letter, Antibiotic Education, Prescription Opioid Use. Follow up: Private Physician; When: 2 - 3 days; Reason: If symptoms return, Further diagnostic work-up, Recheck today's complaints, Continuance of care, Re-evaluation by your physician. Problem is new. Symptoms have improved. kdr
--- NOTE | 2020-10-09 15:31 | ER ---
Nurse's Notes [facility] Name: Michael Loya Age: 55 yrs Sex: Male : 1965 Arrival Date: 10/09/2020 Time: 15:02 Bed 4 Private MD: Diagnosis: Injury of conjunctiva and corneal abrasion without foreign body, left eye Presentation: 10/09 15:02 Chief complaint: Patient states: Was pulling things from the attic when the tip of the ca1 electrical copper wire went into my L eye 20 minutes [employer]. C/O pain and blurring of vision on L eye. Coronavirus screen: Client denies travel out of the [place] in the last 14 days. At this time, the client does not indicate any symptoms associated with coronavirus-19. Ebola Screen: Patient negative for fever greater than or equal to 101.5 degrees Fahrenheit, and additional compatible Ebola Virus Disease symptoms Patient denies exposure to infectious person. Patient denies travel to an Ebola-affected area in the 21 days before illness onset. No symptoms or risks identified at this time. Initial Sepsis Screen: Does the patient meet any 2 criteria? No. Patient's initial sepsis screen is negative. Does the patient have a suspected source of infection? No. Patient's initial sepsis screen is negative. Risk Assessment: Do you want to hurt yourself or someone else? Patient reports no desire to harm self or others. Onset of symptoms was October 09, 2020. 15:02 Acuity: LUISA 2 ca1 15:02 Method Of Arrival: Ambulatory ca1 Historical: - Allergies: 15:05 No Known Allergies; sv - PMHx: 15:03 Hepatitis C; sv - PSHx: 15:03 Cholecystectomy; toe surgery; sv - Immunization history:: Client reports having NOT received the Covid vaccine. Last tetanus immunization: < 5 years ago Flu vaccine is not up to date. - Social history:: Smoking status: Patient reports the use of cigarette tobacco products, smokes one-half pack cigarettes per day. Screenin:15 Abuse screen: Denies threats or abuse. Nutritional screening: No deficits noted. em Tuberculosis screening: No symptoms or risk factors identified. Fall Risk None identified. Assessment: 15:05 General: Appears uncomfortable, Behavior is calm, cooperative. Pain: Complains of pain em in left eye. Neuro: Level of Consciousness is awake, alert, obeys commands, Oriented to person, place, time, situation. Cardiovascular: Capillary refill < 3 seconds Patient's skin is warm and dry. Respiratory: Airway is patent Respiratory effort is even, unlabored, Respiratory pattern is regular, symmetrical. EENT: Eyes are tearing on left eye Sclera/Cornea are reddened in left eye Reports blurred vision in left eye pain in left eye. Derm: Skin is intact, is healthy with good turgor, Skin is pink, warm \T\ dry. Musculoskeletal: Capillary refill < 3 seconds, Range of motion: intact in all extremities. Vital Signs: 15:02 BP 149 / 91; Pulse 88; Resp 16 S; Temp 97.8(TE); Pulse Ox 97% on R/A; Weight 74.84 kg ca1 (R); Height 5 ft. 8 in. (172.72 cm) (R); 15:02 Body Mass Index 25.09 (74.84 kg, 172.72 cm) ca1 ED Course: 15:02 Patient arrived in ED. em1 15:02 Ryley Allison MD is Attending Physician. kdr 15:03 Arm band placed on. sv 15:08 Triage completed. ca1 15:12 Brian Suárez, DIANA is Primary Nurse. em 15:15 Patient has correct armband on for positive identification. Pulse ox on. NIBP on. em 15:35 Assist provider with eye exam of left eye. using fluorescein stain, Performed by Ryley Allison MD Patient tolerated well. 15:45 Patient did not have IV access during this emergency room visit. em Administered Medications: 15:10 Drug: Tetracaine Drops 0.5 % 1 drops Route: Ophthalmic; Site: left eye; em 15:20 Follow up: Response: No adverse reaction em 15:24 Drug: [place] (HYDROcodone-acetaminophen) (7.5 mg-325 mg) 1 tabs Route: PO; em 15:44 Follow up: Response: No adverse reaction em 15:42 Drug: Tobramycin Ointment (0.3 %) 0.5 inches Route: Ophthalmic; Site: left eye; em 15:44 Follow up: Response: Medication administered at discharge. em 15:43 Not Given (Other Intervention Used): Gentamicin Ointment 0.3 % 0.5 inches Ophthalmic em once; Left Eye Outcome: 15:31 Discharge ordered by . kdr 15:45 Discharged to home ambulatory. em 15:45 Condition: stable 15:45 Discharge instructions given to patient, Instructed on discharge instructions, follow up and referral plans. no drinking with medication, no driving heavy equipment, medication usage, Demonstrated understanding of instructions, follow-up care, medications, Prescriptions given X 2. 15:46 Patient left the ED. em Signatures: Nettie Chisholm RN RN Ryley Chanel MD MD kdr Munoz, Edgar, RN RN em Martinez, Eric em1 Wendie Power RN RN ca1
[2020-10-09] MEDS ORDERED: HYDROCODONE/APAP 7.5/325 MG TAB ONE (15:42)
[2020-10-09 15:53] VITALS: BP 149/91; TEMP 97.8; O2SAT 97
[2020-10-09] MEDS ORDERED: TOBRAMYCIN SULF 0.3% OPTH OINT ONE (15:55)
== END 2020-10-09 15:46 | disposition home or self-care (01) ==
LOC: ER 15:00
DX: S05.02XA Injury of conjunctiva and corneal abrasion without foreign body, left eye, initial encounter (principal); F17.210 Nicotine dependence, cigarettes, uncomplicated; W22.8XXA Striking against or struck by other objects, initial encounter
CPT/HCPCS: 99284

== ENCOUNTER 2020-11-23 13:26 | Emergency (ER) | payer SELFPAY ==
--- OUTSIDE RECORDS SUMMARY | 2020-11-23 13:29 | XMS REPORT | Continuity of Care Document ---
:[address] [facility] t Address [address] [place] [id number] Care Team Providers Name Role Phone Unavailable Unavailable Unavailable Problems This patient has no known problems. Allergies, Adverse Reactions, Alerts This patient has no known allergies or adverse reactions. Medications This patient has no known medications. Procedures This patient has no known procedures. Results This patient has no known results.
[2020-11-23] MEDS ORDERED: KETOROLAC 30 MG/ML INJ ONE (14:50)
--- NOTE | 2020-11-23 15:23 | RAD REPORT ---
EXAM DESCRIPTION: RAD - Shoulder Right 2 View - 11/23/2020 3:06 pm CLINICAL HISTORY: Right shoulder pain FINDINGS: No fracture or dislocation is seen. Moderate osteoarthritis AC joint consisting of osteoph ytes and joint space narrowing
--- NOTE | 2020-11-23 15:38 | EDPHYS ---
Physician Documentation [facility] Name: Michael Loya Age: 55 yrs Sex: Male : 1965 Arrival Date: 11/23/2020 Time: 13:30 Bed 14 Private MD: ED Physician Micah Stinson HPI: 11/23 17:58 This 55 yrs old Male presents to ER via Ambulatory with complaints of tw4 Shoulder Pain. 17:58 The patient or guardian complains of pain, that is acute. tw4 17:59 right shoulder. Context: The problem was sustained at home, resulted from. Onset: The tw4 symptoms/episode began/occurred last month. Modifying factors: the symptoms are alleviated by nothing. The symptoms are aggravated by lifting weight, movement. Associated signs and symptoms: The patient has no apparent associated signs or symptoms. Treatment prior to arrival includes: no previous treatment. The patient has not experienced similar symptoms in the past. Historical: - Home Meds: 13:52 None [Active]; ca1 - PMHx: 13:52 Hepatitis C; ca1 - Immunization history:: Client reports having NOT received the Covid vaccine. Flu vaccine is not up to date. - Social history:: Smoking status: Patient reports the use of cigarette tobacco products, smokes one-half pack cigarettes per day. ROS: 17:59 Constitutional: Negative for fever, chills, and weight loss, Eyes: Negative for injury, tw4 pain, redness, and discharge, Cardiovascular: Negative for chest pain, palpitations, and edema, Respiratory: Negative for shortness of breath, cough, wheezing, and pleuritic chest pain, Abdomen/GI: Negative for abdominal pain, nausea, vomiting, diarrhea, and constipation, Back: Negative for injury and pain, Neuro: Negative for headache, weakness, numbness, tingling, and seizure. 17:59 MS/extremity: Positive for decreased range of motion, tenderness. Exam: 17:59 Constitutional: This is a well developed, well nourished patient who is awake, alert, tw4 and in no acute distress. Head/Face: Normocephalic, atraumatic. Chest/axilla: Normal chest wall appearance and motion. Nontender with no deformity. No lesions are appreciated. Cardiovascular: Regular rate and rhythm with a normal S1 and S2. No gallops, murmurs, or rubs. Normal PMI, no JVD. No pulse deficits. Respiratory: Lungs have equal breath sounds bilaterally, clear to auscultation and percussion. No rales, rhonchi or wheezes noted. No increased work of breathing, no retractions or nasal flaring. Abdomen/GI: Soft, non-tender, with normal bowel sounds. No distension or tympany. No guarding or rebound. No evidence of tenderness throughout. Back: No spinal tenderness. No costovertebral tenderness. Full range of motion. Neuro: Awake and alert, GCS 15, oriented to person, place, time, and situation. Cranial nerves II-XII grossly intact. Motor strength 5/5 in all extremities. Sensory grossly intact. Cerebellar exam normal. Normal gait. 17:59 Musculoskeletal/extremity: Extremities: noted in the anterior aspect of right shoulder: decreased ROM, pain. Vital Signs: 13:50 BP 148 / 99; Pulse 85; Resp 16 S; Temp 97.9(TE); Pulse Ox 99% on R/A; Weight 72.57 kg ca1 (R); Height 5 ft. 8 in. (172.72 cm) (R); Pain 4/10; 14:23 BP 102 / 77; Pulse 79; Resp 18; Pulse Ox 100% on R/A; Pain 3/10; ap3 13:50 Body Mass Index 24.33 (72.57 kg, 172.72 cm) ca1 MDM: 15:37 Patient medically screened. tw4 18:01 Data reviewed: vital signs, nurses notes. Data reviewed: radiologic studies, plain tw4 films. Data interpreted: Pulse oximetry: Interpretation: normal. Counseling: I had a detailed discussion with the patient and/or guardian regarding: the historical points, exam findings, and any diagnostic results supporting the discharge/admit diagnosis. 11/23 14:27 Order name: Shoulder Right (2 View) XRAY tw4 Administered Medications: 14:33 Drug: Ketorolac 60 mg Route: IM; Site: right deltoid; ap3 15:39 Follow up: Response: No adverse reaction; Pain is decreased ap3 Disposition Summary: 11/23/20 15:37 Discharge Ordered Location: Home tw4 Problem: new tw4 Symptoms: have improved tw4 Condition: Stable tw4 Diagnosis - Other sprain of right shoulder joint tw4 Followup: tw4 - With: Private Physician - When: Upon discharge from the Emergency Department - Reason: Recheck today's complaints, Continuance of care, Re-evaluation by your physician Forms: - Medication Reconciliation Form tw4 - Thank You Letter tw4 - Antibiotic Education 4 - Prescription Opioid Use Signatures: Dispatcher [employer] Micah Trejo MD MD tw4 Carol Ann Rousseau RN RN ap3 Wendie Power RN RN ca1
--- NOTE | 2020-11-23 15:38 | ER ---
Nurse's Notes [facility] Name: Michael Loya Age: 55 yrs Sex: Male : 1965 Arrival Date: 11/23/2020 Time: 13:30 Bed 14 Private MD: Diagnosis: Other sprain of right shoulder joint Presentation: 11/23 13:50 Chief complaint: Patient states: R shoulder pain about a month now. I don't remember ca1 doing anything, I just woke up one day like that. Coronavirus screen: Client denies travel out of the [place] in the last 14 days. At this time, the client does not indicate any symptoms associated with coronavirus-19. Ebola Screen: Patient negative for fever greater than or equal to 101.5 degrees Fahrenheit, and additional compatible Ebola Virus Disease symptoms Patient denies exposure to infectious person. Patient denies travel to an Ebola-affected area in the 21 days before illness onset. No symptoms or risks identified at this time. Initial Sepsis Screen: Does the patient meet any 2 criteria? No. Patient's initial sepsis screen is negative. Does the patient have a suspected source of infection? No. Patient's initial sepsis screen is negative. Risk Assessment: Do you want to hurt yourself or someone else? Patient reports no desire to harm self or others. Onset of symptoms was November 23, 2020. 13:50 Method Of Arrival: Ambulatory ca1 13:50 Acuity: LUISA 4 ca1 Triage Assessment: 14:03 General: Appears in no apparent distress. comfortable, Behavior is calm, cooperative, ap3 appropriate for age. Historical: - Home Meds: 13:52 None [Active]; ca1 - PMHx: 13:52 Hepatitis C; ca1 - Immunization history:: Client reports having NOT received the Covid vaccine. Flu vaccine is not up to date. - Social history:: Smoking status: Patient reports the use of cigarette tobacco products, smokes one-half pack cigarettes per day. Screenin:03 Abuse screen: Denies threats or abuse. Nutritional screening: No deficits noted. ap3 Tuberculosis screening: No symptoms or risk factors identified. Fall Risk None identified. Assessment: 14:20 General: Appears in no apparent distress. comfortable, Behavior is calm, cooperative, ap3 appropriate for age. Pain: Complains of pain in anterior aspect of right shoulder Pain does not radiate. Pain currently is 3 out of 10 on a pain scale. Quality of pain is described as aching, crampy, Pain began patient states pain began weeks ago. Neuro: Level of Consciousness is awake, alert, obeys commands, Oriented to person, place, time, situation. Cardiovascular: Denies chest pain, shortness of breath. Respiratory: Airway is patent Respiratory effort is even, unlabored, Respiratory pattern is regular, symmetrical. GI: No signs and/or symptoms were reported involving the gastrointestinal system. : No signs and/or symptoms were reported regarding the genitourinary system. EENT: No signs and/or symptoms were reported regarding the EENT system. Vital Signs: 13:50 BP 148 / 99; Pulse 85; Resp 16 S; Temp 97.9(TE); Pulse Ox 99% on R/A; Weight 72.57 kg ca1 (R); Height 5 ft. 8 in. (172.72 cm) (R); Pain 4/10; 14:23 BP 102 / 77; Pulse 79; Resp 18; Pulse Ox 100% on R/A; Pain 3/10; ap3 13:50 Body Mass Index 24.33 (72.57 kg, 172.72 cm) ca1 ED Course: 13:30 Patient arrived in ED. bp1 13:51 Triage completed. ca1 13:52 Arm band placed on right wrist. ca1 14:00 Micah Stinson MD is Attending Physician. tw4 14:02 Carol Ann Rousseau, RN is Primary Nurse. ap3 14:03 Patient has correct armband on for positive identification. Bed in low position. Call ap3 light in reach. Side rails up X 1. Pulse ox on. NIBP on. Door closed. Noise minimized. 15:06 Shoulder Right (2 View) XRAY In Process Unspecified. EDMS 15:39 No provider procedures requiring assistance completed. Patient did not have IV access ap3 during this emergency room visit. Administered Medications: 14:33 Drug: Ketorolac 60 mg Route: IM; Site: right deltoid; ap3 15:39 Follow up: Response: No adverse reaction; Pain is decreased ap3 Outcome: 15:37 Discharge ordered by . tw4 15:48 Patient left the ED. ap3 Signatures: Dispatcher [employer] Micah Trejo MD MD tw4 Carol Ann Rousseau, RN RN ap3 Wendie Power, RN RN ca1 Gavi Moore bp1
[2020-11-23 15:53] VITALS: TEMP 97.9
[2020-11-23 15:55] VITALS: BP 102/77; O2SAT 100
== END 2020-11-23 15:48 | disposition home or self-care (01) ==
LOC: ER 13:26
DX: S43.491A Other sprain of right shoulder joint, initial encounter (principal); F17.210 Nicotine dependence, cigarettes, uncomplicated
CPT/HCPCS: 96372; 99283

== ENCOUNTER 2022-02-04 13:16 | Emergency (ER) | payer SELFPAY ==
[2022-02-04] MEDS ORDERED: KETOROLAC 30 MG/ML INJ ONE (14:21)
[2022-02-04 14:38] LABS: Absolute Lymphocytes (CBC) 1.2 K/uL (0.7-4.9); Hematocrit 35.2 % (39.6-49.0); MCV 88.7 fL (80-100); MPV 7.8 fL (7.6-11.3); RBC Red Blood Cell Count 3.97 M/uL (4.33-5.43)
[2022-02-04 14:57] LABS: Potassium 3.2 mmol/L (3.5-5.1)
--- NOTE | 2022-02-04 15:14 | ER ---
Nurse's Notes [facility] Name: Michael Loya Age: 56 yrs Sex: Male : 1965 Arrival Date: 02/04/2022 Time: 13:19 Bed IW2 Private MD: Joel Gamez E Diagnosis: Pain in left foot;Pain in right foot Presentation: 02/04 13:58 Chief complaint: Patient states: feet swelling x 2 months ago, pt states "I've never aa5 had feet swelling before". Coronavirus screen: At this time, the client does not indicate any symptoms associated with coronavirus-19. Ebola Screen: Patient denies travel to an Ebola-affected area in the 21 days before illness onset. Initial Sepsis Screen: Does the patient meet any 2 criteria? No. Patient's initial sepsis screen is negative. Does the patient have a suspected source of infection? No. Patient's initial sepsis screen is negative. Risk Assessment: Do you want to hurt yourself or someone else? Patient reports no desire to harm self or others. Onset of symptoms was January 2022. 13:58 Acuity: LUISA 3 aa5 13:58 Method Of Arrival: Ambulatory aa5 Historical: - Allergies: 13:58 No Known Allergies; aa5 - Home Meds: 13:58 None [Active]; aa5 - PMHx: 13:58 Hepatitis C; aa5 - PSHx: 13:58 Cholecystectomy; toe surgery; aa5 - Immunization history:: Adult Immunizations unknown. - Social history:: Smoking status: Patient reports the use of cigarette tobacco products, denies chronic smoking, but will smoke occasionally. Screenin:56 Abuse screen: Denies threats or abuse. Denies injuries from another. Nutritional iw screening: No deficits noted. Tuberculosis screening: No symptoms or risk factors identified. Fall Risk IV access (20 points). Assessment: 15:56 Reassessment: Patient appears in no apparent distress at this time. Patient and/or iw family updated on plan of care and expected duration. Pain level reassessed. Patient is alert, oriented x 3, equal unlabored respirations, skin warm/dry/pink. Vital Signs: 13:58 BP 129 / 76; Pulse 78; Resp 18 S; Temp 98.9(TE); Pulse Ox 100% on R/A; Weight 80.6 kg aa5 (M); Height 5 ft. 8 in. (172.72 cm) (R); 13:58 Body Mass Index 27.02 (80.60 kg, 172.72 cm) aa5 ED Course: 13:19 Patient arrived in ED. rg4 13:19 Joel Gamez MD is Private Physician. rg4 13:58 Arm band placed on. aa5 13:59 Triage completed. aa5 14:03 [facility] Molina [facility]. jh7 14:03 Chung Bone MD is Attending Physician. jh7 14:09 Gavi Hrebert, RN is Primary Nurse. 7 14:27 Initial lab(s) drawn, by nh, sent to lab. Inserted saline lock: 22 gauge in left bm7 antecubital area, using aseptic technique. Blood collected. 14:28 Patient placed in waiting room. bm7 15:13 Joel Gamez MD is Referral Physician. [facility] 15:56 No provider procedures requiring assistance completed. IV discontinued, intact, iw bleeding controlled, No redness/swelling at site. Pressure dressing applied. Administered Medications: 14:14 Drug: Ketorolac 30 mg Route: IM; Site: left deltoid; 7 15:42 Drug: Potassium Chloride 40 mEq Route: PO; iw Outcome: 15:13 Discharge ordered by . [facility] 15:56 Discharged to home ambulatory, with family. iw 15:56 Condition: good 15:56 Discharge instructions given to patient, family, Instructed on discharge instructions, follow up and referral plans. Demonstrated understanding of instructions, follow-up care, medications, Prescriptions given X 1. 15:57 Patient left the ED. iw Signatures: Jackie Vaz, RN DIANA Josefina Hanks, RN RN 5 Amara Sanford 4 Gavi Herbert, RN RN [facility] Amee Molina FNP [place] [id number]
--- NOTE | 2022-02-04 15:14 | EDPHYS ---
Physician Documentation [facility] Name: Michael Loya Age: 56 yrs Sex: Male : 1965 Arrival Date: 02/04/2022 Time: 13:19 Bed IW2 Private MD: Joel Gamez E ED Physician Chung Bone HPI: 02/04 14:00 This 56 yrs old Male presents to ER via Ambulatory with complaints of Feet pain and jh7 Swelling. 14:00 The patient presents with pain, that is chronic, swelling. The complaints affect the jh7 left foot, right foot. Onset: The symptoms/episode began/occurred 3 month(s) ago. Patient reports bilateral foot pain with swelling for the past couple of months. Denies any fever, redness, or injury.. Historical: - Allergies: 13:58 No Known Allergies; aa5 - Home Meds: 13:58 None [Active]; aa5 - PMHx: 13:58 Hepatitis C; aa5 - PSHx: 13:58 Cholecystectomy; toe surgery; aa5 - Immunization history:: Adult Immunizations unknown. - Social history:: Smoking status: Patient reports the use of cigarette tobacco products, denies chronic smoking, but will smoke occasionally. ROS: 14:00 Constitutional: Negative for fever, chills, and weight loss, Neck: Negative for injury, jh7 pain, and swelling, Cardiovascular: Negative for chest pain, palpitations, and edema, Respiratory: Negative for shortness of breath, cough, wheezing, and pleuritic chest pain, Abdomen/GI: Negative for abdominal pain, nausea, vomiting, diarrhea, and constipation, Back: Negative for injury and pain, Skin: Negative for injury, rash, and discoloration, Neuro: Negative for headache, weakness, numbness, tingling, and seizure. 14:00 MS/extremity: Positive for pain, swelling, Negative for acute changes, erythema. 14:00 All other systems are negative. Exam: 14:00 Constitutional: This is a well developed, well nourished patient who is awake, alert, jh7 and in no acute distress. Head/Face: Normocephalic, atraumatic. Cardiovascular: Regular rate and rhythm with a normal S1 and S2. No gallops, murmurs, or rubs. Normal PMI, no JVD. No pulse deficits. Respiratory: Lungs have equal breath sounds bilaterally, clear to auscultation and percussion. No rales, rhonchi or wheezes noted. No increased work of breathing, no retractions or nasal flaring. Abdomen/GI: Soft, non-tender, with normal bowel sounds. No distension or tympany. No guarding or rebound. No evidence of tenderness throughout. Back: No spinal tenderness. No costovertebral tenderness. Full range of motion. Skin: Warm, dry with normal turgor. Normal color with no rashes, no lesions, and no evidence of cellulitis. Neuro: Awake and alert, GCS 15, oriented to person, place, time, and situation. Motor strength 5/5 in all extremities. Sensory grossly intact. Normal gait. 14:00 Musculoskeletal/extremity: ROM: full active range of motion, Pulses: are normal with no appreciated deficits, Sensation intact. No erythema, tenderness to palpation, or any signs of injury. Very mild swelling on the dorsal feet as well as the lateral ankles.. Vital Signs: 13:58 BP 129 / 76; Pulse 78; Resp 18 S; Temp 98.9(TE); Pulse Ox 100% on R/A; Weight 80.6 kg aa5 (M); Height 5 ft. 8 in. (172.72 cm) (R); 13:58 Body Mass Index 27.02 (80.60 kg, 172.72 cm) aa5 MDM: 14:04 Patient medically screened. [facility] 15:19 Differential diagnosis: sprain, CHF, dependent edema, venous insufficiency. Data [facility] reviewed: vital signs, nurses notes. Data reviewed: lab test result(s). Data interpreted: Pulse oximetry:. Data interpreted: Pulse oximetry: is 100 %. Interpretation: normal. Counseling: I had a detailed discussion with the patient and/or guardian regarding: the historical points, exam findings, and any diagnostic results supporting the discharge/admit diagnosis, to return to the emergency department if symptoms worsen or persist or if there are any questions or concerns that arise at home. 02/04 14:08 Order name: BMP; Complete Time: 15:10 [facility] 02/04 14:08 Order name: CBC with Diff; Complete Time: 14:52 [facility] 02/04 14:08 Order name: NT PRO-BNP; Complete Time: 15:10 [facility] Administered Medications: 14:14 Drug: Ketorolac 30 mg Route: IM; Site: left deltoid; 7 15:42 Drug: Potassium Chloride 40 mEq Route: PO; iw Disposition Summary: 02/04/22 15:13 Discharge Ordered Location: Home [facility] Problem: new [facility] Symptoms: have improved [facility] Condition: Stable [facility] Diagnosis - Pain in left foot jh7 - Pain in right foot [facility] Followup: [facility] - With: Joel Gamez MD - When: 2 - 3 days - Reason: Recheck today's complaints Discharge Instructions: - Discharge Summary Sheet [facility] - Musculoskeletal Pain [facility] - Foot Pain [facility] Forms: - Medication Reconciliation Form [facility] - Thank You Letter [facility] Prescriptions: - Medrol (Jayce) 4 mg Oral Tablets, Dose Pack - take 1 tablet by ORAL route as directed - follow package instructions; 1 [facility] packet; Refills: 0, Product Selection Permitted Signatures: Dispatcher [employer] Jackie Howe RN RN iw Josefina Hanks RN RN aa5 Gavi Herbert RN RN bm7 Amee Molina, WATCHMAKER APPRENTICE WATCHMAKER APPRENTICE [facility]
[2022-02-04] MEDS ORDERED: POTASSIUM CL SA 10 MEQ TAB PO ONE (15:34)
[2022-02-06 05:52] VITALS: BP 129/76; TEMP 98.9; O2SAT 100
== END 2022-02-04 15:57 | disposition home or self-care (01) ==
LOC: ER 13:16
DX: M79.672 Pain in left foot (principal); M79.671 Pain in right foot; F17.210 Nicotine dependence, cigarettes, uncomplicated
CPT/HCPCS: 36415; 80048; 83880; 85025; 96372; 99284